=== PATIENT | male | born 1975 | race Caucasian/White ===

== ENCOUNTER 2017-11-12 10:05 | Emergency (ER) | payer OTHER, BC ==
[2017-11-12 10:15] VITALS: PULSE 87; RESP 18
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
[2017-11-12 11:37] VITALS: BP 118/78; TEMP 98.7
== END 2017-11-12 11:36 | disposition home or self-care (01) ==
LOC: EC 10:05
DX: M54.6 Pain in thoracic spine (principal); F41.0 Panic disorder [episodic paroxysmal anxiety]; F17.200 Nicotine dependence, unspecified, uncomplicated; Z79.899 Other long term (current) drug therapy; V47.5XXA Car driver injured in collision with fixed or stationary object in traffic accident, initial encounter
CPT/HCPCS: 72050; 72072; 99284

== ENCOUNTER → 2021-03-23 | Outpatient (CLI) | payer BC ==
[2021-03-23 13:47] LABS: HCT 48.4 % (39.0-53.0); HGB 15.8 gm/dL (13.0-17.5); MCH 29.7 pg (25.0-35.0); MCHC 32.6 g/dL (31.0-37.0); MCV 91.3 fL (80.0-100.0); Mean Platelet Volume 6.8; Platelet Count 320 k/uL (150-450); RDW 14.6 % (11.5-15.5); WBC 9.2 k/uL (3.8-10.6)
[2021-03-23 14:02] LABS: African American GFR (CKD) >90 (>60 ml/min/1.73 sqM); Anion Gap 5 mmol/L; Blood Urea Nitrogen 14 mg/dL (9-20); Calcium 9.2 mg/dL (8.4-10.2); Carbon Dioxide 29 mmol/L (22-30); Chloride 105 mmol/L (98-107); Glucose 90 mg/dL (74-99); Non-African American GFR(CKD) >90 (>60 ml/min/1.73 sqM); Potassium 4.3 mmol/L (3.5-5.1); Sodium 139 mmol/L (137-145)
== END | disposition home or self-care (01) ==
LOC: LABWHC1 11:44
PROVIDERS: ATTEND Podiatrist Foot & Ankle Surgery
DX: Z01.812 Encounter for preprocedural laboratory examination (principal)
CPT/HCPCS: 80048; 85027

== ENCOUNTER 2021-03-28 11:41 | Day surgery (SDC) | payer BC ==
[2021-03-27 09:37] VITALS: BMI 25.0
[~2021-03-28 11:41] MED LIST: DEXAMETHASONE SOD PHOSPHATE 4 MG/ML 1 ML VIAL IV ONE; LACTATED RINGERS 1,000 ML IV SCH; LIDOCAINE 1% (10MG/ML) FOR IV START INTRADERMA PRN; ONDANSETRON 4 MG/2 ML VIAL IVP ONE; Pre Op ABX Message 1 EACH MISC MISCELLANE ONE; SCOPOLAMINE 1.5MG/72HR PATCH TRANSDERM ONE; fentaNYL (PF) 50 MCG/ML 2 ML AMP IV PRN
[2021-03-28 12:46] VITALS: TEMP 97.3
[2021-03-28] MEDS ORDERED: MIDAZOLAM 2 MG/2 ML VIAL ONE (13:01)
[2021-03-28] MEDS ORDERED: KETAMINE 10 MG/ML 20 ML VIAL ONE (13:01)
[2021-03-28] MEDS ORDERED: fentaNYL (PF) 50 MCG/ML 2 ML AMP ONE (13:01)
[2021-03-28] MEDS ORDERED: PROPOFOL 10 MG/ML 20 ML VIAL IV ONE (13:01)
[2021-03-28] MEDS ORDERED: LIDOCAINE 1% INJ 10MG/ML (20 ML MDV) ONE (13:01)
[2021-03-28] MEDS ORDERED: BUPIVACAINE (PF) 0.5% 30 ML VIAL SQ ONE (13:20)
--- NOTE | 2021-03-28 14:05 | P.OP ---
Date of Procedure: 03/28/21 Preoperative Diagnosis: Plantar declination did third metatarsal left foot Postoperative Diagnosis: Samehypertrophied bone Procedure(s) Performed: V metatarsal elevating osteotomy third metatarsal left foot Surgeon: Rahul Alonso Estimated Blood Loss (ml): 2 Indications for Procedure: Painful callus sub-third MPJ left foot Description of Procedure: On the date of surgery the patient was taken the operating room in good condition dish and laced on the operating table supine position where an IV was started and adequate IV anesthetic agents were utilized anesthesia was then further supplemented with approximately 13 mL of 0.5 plain Marcaine infiltrative block about the third ray complex of the patient's left foot. The patient's left foot ankle were then prepped and draped in usual aseptic manner. Over heavy web roll padding an ankle tourniquet had been placed above the malleoli of the patient's left ankle the patient's left foot and ankle were then elevated and exsanguinated of blood and after approximately 1 minutes. A time the ankle tourniquet was inflated to approximately 250 mmHg. At this time attention was directed to the dorsal aspect of the distal one third of the third metatarsal shaft where an approximately 4 cm dorsal linear incision was made the incision was deepened down through the level of the subcutaneous tissue layers all neurovascular structures encountered were identified isolated and were retracted and any bleeding vessels were clamped and electrocauterized carried deep down to level of the extensor digitorum longus tendon to the third toe which was identified and retracted laterally, Capsular and Periosteal Structures were Then Incised in Line with the Original Skin Incision and Underscored and Retracted from the Underlying Bone. Utilizing an oscillating bone saw a V metatarsal elevating osteotomy was then performed at the metaphysis area of the third metatarsal upon of this through and through dorsal to plantar V metatarsal osteotomy the capital fragment was displaced in a dorsal direction by approximately 3 mm and impacted back upon the spike created by the osteotomy the osteotomy was fixated with a 0.045 K wire procedure copious amounts of sterile saline solution was used to irrigate the surgical site. Periosteal Structures Were Then Coaptated and Maintained Utilizing 3-0 Vicryl Si mple Interrupted Suture As Was the Subcutaneous Tissues. The Skin Was Then Closed Utilizing 4-0 Nylon Simple Interrupted Suture. After Kerlix Fluffs Four- Inch Conformer and 4 Inch Coban Was Used To Form a Compression Dressing and the Ankle Tourniquet to the Patient's Left Ankle Was Deflated Adequate Hemostatic Return Was Seen in All Digits of the Patient's Left Foot, and in particular the third digit of the left foot. The Patient Tolerated the Surgery and Anesthesia Well Was Taken to Recovery Room in Good Postoperative Condition P.M.
[2021-03-28 14:10] VITALS: RESP 16
[2021-03-28 14:36] VITALS: BP 131/83; PULSE 52
== END 2021-03-28 14:55 | disposition home or self-care (01) ==
LOC: OR 11:41
PROVIDERS: ATTEND Podiatrist Foot & Ankle Surgery
DX: M89.30 Hypertrophy of bone, unspecified site (principal); M79.672 Pain in left foot; F17.210 Nicotine dependence, cigarettes, uncomplicated; F12.90 Cannabis use, unspecified, uncomplicated
CPT/HCPCS: 28308; J2250; J1100; J2405; J2001; J3010; J2704

== ENCOUNTER → 2021-05-01 | Outpatient (CLI) | payer BC ==
--- NOTE | 2021-05-03 04:03 | MR ---
EXAMINATION TYPE: MR shoulder LT wo con DATE OF EXAM: 05/01/2021 COMPARISON: None HISTORY: Left shoulder pain, loss of range of motion Multiplanar multiecho imaging of the left shoulder with no contrast. There is shoulder joint effusion. Biceps tendon is intact. There is fluid around the biceps tendon. S ubscapularis tendon is intact. The glenoid anne appear intact. There is some mild increased signal i n the supraspinatus tendon on the inferior surface over the top of the humeral head. There is no retr action. There is hypertrophic spurring at the AC joint and inferior deflection of the supraspinatus t endon and muscle. I see no bony destructive process. There is no evidence of a fracture. There is some edema on both si antonette of the AC joint. IMPRESSION: There is evidence of a partial tear of the supraspinatus tendon. I do not see a full-thickness tear. Subacromial joint space narrowing and impingement localized to the AC joint with impingement on the s upraspinatus tendon and muscle. Shoulder joint effusion consistent with some nonspecific synovitis. Edema on both sides of the AC joint consistent with arthritic disease.
== END | disposition home or self-care (01) ==
LOC: RADMRIMAIN 11:29
PROVIDERS: ATTEND Orthopaedic Surgery
DX: M75.102 Unspecified rotator cuff tear or rupture of left shoulder, not specified as traumatic (principal); M25.412 Effusion, left shoulder

== ENCOUNTER → 2021-06-19 | Outpatient (CLI) | payer BC ==
[2021-06-19 12:12] LABS: Basophils # (A) 0.1 k/uL (0-0.2); Basophils % (A) 1 %; Eosinophils # (A) 0.3 k/uL (0-0.7); Eosinophils % (A) 3 %; HCT 47.2 % (39.0-53.0); HGB 16.5 gm/dL (13.0-17.5); Lymphocytes # (A) 2.5 k/uL (1.0-4.8); Lymphocytes % (A) 26 %; MCH 31.8 pg (25.0-35.0); MCHC 34.9 g/dL (31.0-37.0); MCV 90.9 fL (80.0-100.0); Mean Platelet Volume 6.9; Monocytes # (A) 0.6 k/uL (0-1.0); Monocytes % (A) 6 %; Neutrophils # (A) 6.1 k/uL (1.3-7.7); Neutrophils % (A) 63 %; Platelet Count 377 k/uL (150-450); RBC 5.19 m/uL (4.30-5.90); RDW 14.7 % (11.5-15.5); WBC 9.7 k/uL (3.8-10.6)
[2021-06-19 12:18] LABS: Potassium 4.7 mmol/L (3.5-5.1)
== END | disposition home or self-care (01) ==
LOC: LABPAT 10:31
PROVIDERS: ATTEND Orthopaedic Surgery
DX: M75.42 Impingement syndrome of left shoulder (principal)
CPT/HCPCS: 80051; 85025

== ENCOUNTER 2021-06-21 05:46 | Day surgery (SDC) | payer BC ==
[2021-06-20 10:28] VITALS: BMI 24.4
--- NOTE | 2021-06-20 16:26 | HP ---
HISTORY AND PHYSICAL DATE OF SURGERY: 06/21/2021 Joss Condon is a 46-year-old gentleman seen with progressive left shoulder pain. After having treatment options discussed with him he elected to proceed with left shoulder arthroscopy. Consent was obtained. PAST MEDICAL HISTORY: Noncontributory. PAST SURGICAL HISTORY: Foot surgery. DAILY MEDICATIONS: None. ALLERGIES: None. SOCIAL HISTORY: Smokes cigarettes. PHYSICAL EVALUATION OF THE LEFT SHOULDER: Flexion 110 degrees, abduction is 90 degrees, external rotation is 40 degrees with pain and weakness. There is tenderness along the anterolateral acromion and rotator cuff insertion site. Impingement is positive at 90 degrees. Drop-arm sign is positive. Cross-body adduction sign is positive. Distal neurovascular exam is intact. RADIOGRAPHS: Radiographs of the left shoulder revealed a type 2 anterior acromion, evidence for acromioclavicular joint osteoarthritis and cystic changes of the tuberosity. The left shoulder MRI revealed a partial rotator cuff tendon tear, impingement and acromioclavicular joint osteoarthritis. IMPRESSION: 1. Left shoulder impingement with partial rotator cuff tear. 2. Left shoulder acromioclavicular joint osteoarthritis. PLAN: Left shoulder arthroscopy with subacromial decompression, arthroscopic Geraldo procedure, possible arthroscopic rotator cuff repair and debridement. MMODL / IJN: [id number] /
[2021-06-21] MEDS ORDERED: ONDANSETRON 4 MG/2 ML VIAL ONE (06:44)
[2021-06-21] MEDS ORDERED: fentaNYL (PF) 50 MCG/ML 2 ML AMP ONE (07:31)
[2021-06-21] MEDS ORDERED: LIDOCAINE 1% INJ 10MG/ML (20 ML MDV) ONE (07:31)
[2021-06-21] MEDS ORDERED: PROPOFOL 10 MG/ML 20 ML VIAL IV ONE (07:31)
[2021-06-21] MEDS ORDERED: ROPIVACAINE 5 MG/ML 30 ML VIAL ONE (07:31)
[2021-06-21] MEDS ORDERED: MIDAZOLAM 2 MG/2 ML VIAL ONE (07:31)
[2021-06-21] MEDS ORDERED: SUCCINYLCHOLINE CHLORIDE 100 MG/5 ML SYR IV ONE (07:31)
[2021-06-21] MEDS ORDERED: LACTATED RINGERS 1,000 ML IV ONE (07:35)
[2021-06-21] MEDS ORDERED: DEXAMETHASONE SOD PHOSPHATE 4 MG/ML 1 ML VIAL IV ONE (07:58)
[2021-06-21] MEDS ORDERED: ONDANSETRON 4 MG/2 ML VIAL IVP ONE (07:58)
[2021-06-21] MEDS ORDERED: LACTATED RINGERS 1,000 ML IV SCH (07:58)
--- NOTE | 2021-06-21 08:39 | P.ANPRN ---
Procedure Note - Anesthesia - Nerve Block Performed Left Interscalene Single Time Out Performed: Yes ([id number]) Date of Procedure: 06/21/21 Procedure Start Time: 06:49 Procedure Stop Time: 06:54 Location of Patient: PreOp Indication: Acute Post-Operative Pain, Requested by Surgeon Specifically requested for management of pain by DrCherelle: Bentley Steel Sedation Type: Sedate with meaningful contact maintained Preparation: Sterile Prep Position: Supine Catheter: None Needle Types: Pajunk Needle Gauge: 21 Ultrasound used to visualize needle placement: Yes Ultrasound used to observe medication spread: Yes Injectate: 0.5% Ropivacaine (see comment for volume) (30cc) Blood Aspirated: No Pain Paresthesia on Injection Noted: No Resistance on Injection: Normal Image Stored and Saved: Yes Events: Uneventful and Well Tolerated
--- NOTE | 2021-06-21 09:14 | P.OP ---
Date of Procedure: 06/21/21 Preoperative Diagnosis: Left shoulder impingement Postoperative Diagnosis: 1. Left shoulder rotator cuff tear 2. Left shoulder impingement 3. Left shoulder acromioclavicular joint osteoarthritis 4. 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 Left shoulder arthroscopic rotator cuff repair 2. Left shoulder arthroscopic subacromial decompression 3. Left shoulder arthroscopic Geraldo procedure 4. Left shoulder chondroplasty humeral head Implants: 14.75 Arthrex swivel lock anchor Anesthesia: GETA, regional (Interscalene block) Surgeon: Bentley Steel Single Wire Saw Operator #1: Jamel Yoon Estimated Blood Loss (ml): 7 Pathology: none sent Condition: stable Disposition: PACU Indications for Procedure: 46-year-old patient seen with progressive left shoulder pain. After having treatment options discussed, he elected to proceed with arthroscopy. Operative Findings: See description of procedure Description of Procedure: Patient underwent an interscalene block by department of anesthesia. The patient was then taken to the operative suite. The patient underwent a general anesthetic by the department of anesthesia. The patient was placed into a lateral position and secured. There was appropriate padding of the bony prominence. Left shoulder was then prepped and draped in normal sterile orthopedic fashion. We placed the extremity in 10 pounds of longitudinal traction. A posterior incision was now made for a posterior working portal site. The trocar and cannula were inserted into the glenohumeral joint. Arthroscopy wa s initiated. Spinal needle was now inserted anteriorly, to ascertain the anterior working portal site. An incision was now made in that area, a trocar was inserted followed by a probe. I immediately noted an area of grade 2 chondromalacia involving the central aspect of the humeral head with some peripheral osteochondral tears. There was also approximate 3 small loose bodies. No loose bodies were evacuated without difficulty. The labrum was found to be stable. The biceps tendon was stable. I performed a chondroplasty of the humeral head. The residual osteochondral surface appeared stable again noted grade 2 chondromalacia changes. Instruments were now removed from the glenohumeral joint. Utilizing the posterior working portal site, the trocar and cannula were inserted into the subacromial space. Arthroscopy initiated. I made an incision 2 fingerbreadths lateral to the acromion. I introduced my trocar followed by my ArthroCare ablator. I now began ablating thick subacromial bursal tissue, which exposed the undersurface of the anterior acromion. There was diminished subacromial space. There was a very prominent anterior acromion. A motorized bur was introduced and a subacromial decompression was performed. I also excised some osteophytes off the inferior aspect of the distal clavicle. The AC joint was visualized and noted to be fairly arthritic. The motorized bur was i ntroduced in the anterior portal site and a Geraldo procedure was performed without difficulty, decompressing the AC joint nicely. I turned my attention to the rotator cuff. There was an area along the distal supraspinatus that revealed significant partial tearing. Upon probing the area was there was a full- thickness perforation present. I debrided the margins getting down to stable tendon tissue. The tear/defect measuring approximately 11.5 cm and was freely mobile over the footprint. I abraded the footprint with a motorized bur. With the assistance of William MARTELL passed 2 everted mattress sutures through good bites of rotator cuff tendon. I now punched to holes in the footprint area for insertion of an anchor. All 4 limbs of suture were passed through the eyelet of a 4.75 Arthrex swivel lock anchor. I placed the eyelet into the pre-punched hole. I held it in position while William MARTELL tension the sutures and deployed the anchor with good fixation noted. All residual suture limbs were now clipped. We had good compression of the tendon along the entire footprint. I injected 1 mL Renyte intra-articular. Instruments now removed from the portal sites. All portal sites were approximated with nylon suture. Sterile dressings were applied followed by a shoulder sling. Jamel MARTELL assisted in this complex case. The patient was awakened, transferred to a bed, and taken to recovery in stable condition.
[2021-06-21 09:15] VITALS: TEMP 97.1
[2021-06-21 10:36] VITALS: BP 137/89; PULSE 67; RESP 18
== END 2021-06-21 10:55 | disposition home or self-care (01) ==
LOC: OR 05:46
PROVIDERS: ATTEND Orthopaedic Surgery
DX: M75.102 Unspecified rotator cuff tear or rupture of left shoulder, not specified as traumatic (principal); M25.812 Other specified joint disorders, left shoulder; M19.012 Primary osteoarthritis, left shoulder; M94.212 Chondromalacia, left shoulder; F17.210 Nicotine dependence, cigarettes, uncomplicated
CPT/HCPCS: 64415; 76942; 29826; 29827; 29824; C1713; J2250; J0690; J2001; J3010; J2795; J0330; J2704